=== PATIENT | female | born 1970 | race Hispanic/Latino ===

== ENCOUNTER → 2020-10-18 15:29 | Outpatient (CLI) | payer OTHER, SELFPAY ==
--- NOTE | 2020-10-18 | DI.MRI.S_ITS ---
PROCEDURE: MR THORACIC SPINE WO CON INDICATIONS: PARESTHESIA OF SKIN TECHNIQUE: Noncontrast sagittal T1 spine echo and T2 fast spin echo, sagittal STIR, axial T1 and T2 fast spin echo through the thoracic spine. COMPARISON: [facility], , MR CERVICAL SPINE WO CON, 10/18/2020, 15:49. FINDINGS: Image quality: Excellent. Alignment and Curvature: There is normal bony alignment. Bone Marrow: Marrow is of normal overall signal. Increased T1 and T2 signals present at T3 most suggestive of hemangioma. No acute vertebral body compression fractures. Spinal Cord: Visualized spinal cord is normal in size and signal. Paraspinous Soft Tissues: No paravertebral masses. Miscellaneous: On axial images, central canal and foramina appear widely patent at all scanned levels. Scattered mild multilevel disc desiccation is noted. IMPRESSION: Scattered mild multilevel disc desiccation. Dictated by: Marcella Jc M.D. on 10/18/2020 at 17:02 Approved by: Marcella Jc M.D. on 10/18/2020 at 17:04
--- NOTE | 2020-10-18 15:39 | DI.MRI.S_ITS ---
PROCEDURE: MR CERVICAL SPINE WO CON INDICATIONS: PARESTHESIA OF SKIN TECHNIQUE: Noncontrast sagittal T1 spin echo and T2 fast spin echo, sagittal STIR, foraminal oblique sagittal T2 fast spin echo, and axial gradient echo or T2 fast spin echo through the cervical spine. COMPARISON: None. FINDINGS: Image quality: Degraded by patient motion artifact. Alignment and Curvature: There is normal bony alignment. Bone Marrow: Marrow demonstrates normal overall signal. Spinal Cord: Visualized spinal cord has normal size and signal. No cerebellar tonsillar herniation. Paraspinous Soft Tissues: No paravertebral masses. Prevertebral soft tissues are normal in thickness. C2-C3: Normal appearance. C3-C4: Normal appearance. C4-C5: Slight loss of disc signal. Minimal, diffuse disc bulge. Small central disc protrusion. Mild narrowing of the central canal. No neural foraminal narrowing. No neural compression. C5-C6: Loss of disc signal. Slight loss of disc height. Mild to moderate diffuse disc bulge. Moderate narrowing of the central canal. Moderate right neural foraminal narrowing. No neural compression. C6-C7: Loss of disc signal. Mild, diffuse disc bulge. Mild narrowing of the central canal. No neural foraminal narrowing. No neural compression. C7-T1: Normal appearance. IMPRESSION: 1. Mild multilevel degenerative disease. 2. Moderate C5-C6 central canal narrowing. Mild C4-C5 and C6-C7 central canal narrowing. 3. Moderate right C5-C6 neural foraminal narrowing. 4. No neural compression. 5. No abnormal spinal cord signal within limitations related to motion artifact. Dictated by: Loida Prasad MD, PhD on 10/18/2020 at 17:12 Approved by: Loida Prasad MD, PhD on 10/18/2020 at 17:16
== END ==
PROVIDERS: Referring Provider Family Medicine; Visit Provider Family Medicine
DX: M50.321 Other cervical disc degeneration at C4-C5 level (principal); R20.2 Paresthesia of skin
CPT/HCPCS: 72141; 72146

== ENCOUNTER → 2020-12-06 12:40 | Outpatient (CLI) | payer OTHER, SELFPAY ==
--- NOTE | 2020-12-06 | DI.MRI.S_ITS ---
PROCEDURE: MR HEAD/BRAIN WO/W CON INDICATIONS: Cyst on brainstem on cervical MRI TECHNIQUE: Noncontrast axial T1 spin echo, axial T2 fast spin echo, sagittal and axial FLAIR, coronal T2 fast spin echo, axial gradient echo, axial diffusion and ADC through the brain. After the administration of contrast, axial and coronal 3D VIBE or T1 spin echo with fat saturation through the brain. COMPARISON: [facility], MR, MR CERVICAL SPINE WO CON, 10/18/2020, 15:49. FINDINGS: Image quality: Excellent. CSF Spaces: Basal cisterns are patent. No extra-axial fluid collections. Ventricles are normal in size and shape. Brain: In this patient with this given history, scrutiny is given to the apparent brainstem lesion, as seen on the recent prior cervical spine MRI. At this site, no abnormalities can be seen. No abnormal enhancement is seen. No midline shift. No intracranial bleeds or masses. No abnormal intracranial enhancement. The brainstem appears normal. Diffusion-weighted images demonstrate no acute ischemic insults. No chronic ischemic insults. Normal intravascular flow voids are present. Skull and face: Calvarial marrow is normal in signal. Orbits appear normal. Sinuses: Sinuses and mastoids appear clear. IMPRESSION: Normal brainstem. The prior cervical spine MRI appearance is regarded to be artifactual. Negative examination. No masses or abnormal enhancement can be seen. No findings of acute or subacute infarction can be seen. Dictated by: Bandar Hernandez M.D. on 12/06/2020 at 17:01 Approved by: Bandar Hernandez M.D. on 12/06/2020 at 17:05
== END ==
PROVIDERS: Referring Provider Orthopaedic Surgery; Visit Provider Orthopaedic Surgery
DX: R90.89 Other abnormal findings on diagnostic imaging of central nervous system (principal); R29.898 Other symptoms and signs involving the musculoskeletal system
CPT/HCPCS: 70553

== ENCOUNTER 2021-05-20 22:25 | Emergency (ER) | payer OTHER, SELFPAY ==
[2021-05-20 22:37] VITALS: BP 149/81; PULSE 100; RESP 18; TEMP 36.8; O2SAT 98; BMI 28.0
--- NOTE | 2021-05-20 23:15 | ED_ITS ---
HPI - Headache General Chief Complaint: Headache Stated Complaint: LT EYE VISION LOSS/HEADACHES Time Seen by Provider: 05/20/21 22:34 Source: patient Mode of arrival: Ambulatory Limitations: no limitations History of Present Illness HPI Narrative: 50-year-old female nonsmoker with history of neuropathy presents with a friend and a chief complaint of a generalized headache and some vision change in her left eye over the past few days. Her headache is mild to moderate and certainly not her worst. She states is gradually worsening. She denies any trauma, fever, neck pain or numbness, tingling or weakness of her extremities. She denies any obvious provocation or palliation of her headache. Additionally, she complains of some vision disturbance in her left eye. She states that with both eyes open her vision feels fine but when she looks through her left eye only she sees the occasional purple line running across the middle of it and has blurring in the lower third of her visual field. She states she gets pain in her jaw when chewing for the past few days as well. . Complaint: headache Onset (ago): day(s) Onset description: gradual Location: frontal Severity: moderate Quality: aching and throbbing Relieving factors: nothing Exacerbating factors: none Treatments prior to arrival: none Related Data Home Medications Medication Instructions Recorded Confirmed gabapentin 300 mg PO QPM 05/21/21 05/21/21 insulin glargine [Lantus Solostar unit SUBCUT QPM 05/21/21 U-100 Insulin] insulin lispro [Humalog KwikPen 15 unit SUBCUT ACHS 05/21/21 05/21/21 Insulin] metformin 1,000 mg PO BID 05/21/21 05/21/21 Allergies Allergy/AdvReac Type Severity Reaction Status Date / Time No Known Drug Allergies Allergy Verified 05/20/21 22:37 Review of Systems Constitutional Constitutional: Denies chills, Denies fatigue, Denies fever(s), Denies frequent falls, Reports headache(s), Denies lethargy and Denies weakness Eyes Eyes: Reports change in vision, Denies eye discharge, Denies irritation and Denies loss of vision ENT Ears, Nose, Mouth, and Throat: Denies change in voice, Denies dizziness, Reports headache(s), Denies neck pain, Denies sore throat and Denies throat swelling Cardiovascular Cardiovascular: Denies chest pain, Denies irregular heart rhythm, Denies lightheadedness, Denies palpitations, Denies dyspnea, Denies dyspnea on exertion and Denies orthopnea Respiratory Respiratory: Denies cough, Denies dyspnea, Denies dyspnea on exertion and Denies wheezing Gastrointestinal Gastrointestinal: Denies abdominal pain, Denies change in bowel habits, Denies diarrhea, Denies nausea and Denies vomiting Musculoskeletal Musculoskeletal: Denies neck pain and Denies numbness Integumentary/Breasts Skin/Breast: Denies pruritus, Denies erythema, Denies rash and Denies wounds Neurologic Neurologic: Denies behavioral changes, Denies confusion, Denies dizziness, Denies frequent falls, Reports headache(s), Denies loss of vision, Denies numbness and Denies weakness Psychiatric Psychiatric: Denies anxiety, Denies behavioral changes, Denies confusion, Denies depression, Denies homicidal ideation and Denies suicidal ideation Endocrine Endocrine: Denies fatigue, Denies flushing and Denies palpitations Hematologic/Lymphatic Hematologic/Lymphatic: Denies easy bruising Allergic/Immunologic Allergic/Immunologic: Denies urticaria, Denies throat swelling and Denies wheezing Patient History Social History Smoking Status: Never smoker Smoking Status: Never smoker Substance Use Type: does not use Exam Narrative Exam Narrative: GENERAL: [age] year old patient appears stated age. Well- developed patient, in mild distress. HEAD: Atraumatic. Normocephalic. She has tenderness to palpate along much of her left temporal and forehead region, there is no swelling, induration, redness, warmth EYES: Pupils equal round and reactive. Extraocular motions intact and painless. No scleral icterus. No injection or drainage. Normal obvious findings on fundoscopic. OS pressure 18mmHg. ENT: Nose without bleeding, purulent drainage. Throat without erythema, tonsillar hypertrophy or exudate. Airway patent. NECK: Trachea midline. Non tender CARDIOVASCULAR: Regular rate and rhythm without murmurs, gallops, or rubs. RESPIRATORY: Clear to auscultation. Breath sounds equal bilaterally. No wheezes, rales, or rhonchi. GASTROINTESTINAL: Abdomen soft, non-tender, nondistended. EXTREMITIES: No edema or joint tenderness. BACK: Nontender without deformity or crepitance. No flank tenderness. NEURO: AOx3. SKIN: No rash or erythema of visible areas NIH Stroke Scale 1a. LOC: Patient is alert and keenly responsive (0) 1b. LOC Questions: Patient answers both LOC questions accurately (0) 1c. LOC Commands: Patient performs both tasks correctly (0) 2. Best Gaze: Normal (0) 3. Visual: No visual loss (0) 4. Facial palsy: Normal symmetrical movements (0) 5. Motor arm: No drift (0) 6. Motor leg: No drift (0) 7. Limb ataxia: Absent (0) 8. Sensory: Normal (0) 9. Best language: No aphasia; normal (0) 10. Dysarthria: Normal (0) 11. Extinction and inattention: No abnormality (0) NIHSS: 0 Initial Vital Signs Initial Vital Signs: Vital Signs Temperature 98.2 F 05/20/21 22:37 Pulse Rate 100 H 05/20/21 22:37 Respiratory Rate 18 05/20/21 22:37 Blood Pressure 149/81 H 05/20/21 22:37 Pulse Oximetry 98 05/20/21 22:37 Course Course Course Narrative: patient feeling much better after above stated therapies, still has lower field vision disturbance. Orders Ordered: ED Orders 05/20/21 23:16 CT head/brain wo con Stat 05/21/21 01:13 Basic Metabolic Panel Stat C-Reactive Protein Quant Stat Complete Blood Count AUTO DIFF Stat Erythrocyte Sedimentation Rate Stat 05/21/21 04:54 COVID19 -Nasal swab/Pre-Proc Stat Sodium Chloride (Normal Saline 0.9%) 1,000 mls @ 1,000 mls/hr IV BOLUS ONE Stop: 05/21/21 06:27 Discontinued Medications Dexamethasone (Dexamethasone 10 Mg/Ml Vial) 10 mg IV NOW ONE Stop: 05/21/21 00:09 Last Admin: 05/21/21 00:32 Dose: 10 mg Documented by: KGALLAG Diphenhydramine HCl (Diphenhydramine 50 Mg/Ml Vial) 25 mg IV NOW ONE Stop: 05/21/21 00:09 Last Admin: 05/21/21 00:33 Dose: 25 mg Documented by: KGALLAG Sodium Chloride (Normal Saline 0.9%) 1,000 mls @ 1,000 mls/hr IV BOLUS ONE Stop: 05/21/21 01:07 Last Infusion: 05/21/21 01:40 Dose: 0 mls/hr Documented by: Admin: 05/21/21 00:34 Dose: 1,000 mls/hr Documented by: DAMI Methylprednisolone 1,000 mg/ (Sodium Chloride) 258 mls @ 258 mls/hr IV NOW ONE Stop: 05/21/21 05:25 Ketorolac Tromethamine (Ketorolac 30 Mg/Ml Vial) 15 mg IV NOW ONE Stop: 05/21/21 00:09 Last Admin: 05/21/21 00:33 Dose: 15 mg Documented by: DAMI Metoclopramide HCl (Metoclopramide 10 Mg/2 Ml Inj) 10 mg IV NOW ONE Stop: 05/21/21 00:09 Last Admin: 05/21/21 00:33 Dose: 10 mg Documented by: DAMI Proparacaine HCl (Proparacaine 0.5% Ophth Dayana) 1 drops EYE-LEFT NOW ONE Stop: 05/20/21 23:17 Last Admin: 05/20/21 23:33 Dose: 1 drops Documented by: DAMI Consultations Consultation #1: call to patient's ophtho (Dr. Fernandes). Nobody webmethods consultant call to [facility] and they have Dr. Portillo webmethods consultant, but his malpractice will not allow him to consult for us call to [place]. No Ophtho coverage call to [facility] in [place]. No optho coverage call to /[facility] (Dr. Jara) requests patient be transferred for more detailed ophthalmology exam. Patient agrees with and understands the plan recommendation to give Solu-medrol 1000mg, no pharmacy in house. Nursing trying to make it. Patient then tells us that she is diabetic. We will hold on solu- medrol until arrival in [facility] given transport team cannot take a drip and she already had decadron. Vital Signs Vital signs: Vital Signs - 8 hr 05/20/21 22:37 05/21/21 05:13 Temperature 98.2 F Pulse Rate 100 H 94 H Respiratory Rate 18 16 Blood Pressure 149/81 H 135/76 Pulse Oximetry 98 98 MDM - Headache Lab Data Result diagrams: 05/21/21 01:13 05/21/21 01:13 Labs: Lab Results 05/21/21 05/21/2121 Range/Units 01:13 01:13 04:54 WBC 7.0 (4.5-11.0) X10^3/uL RBC 3.46 L (4.0-5.2) X10^6/uL Hgb 11.0 L (12.0-16.0) g/dL Hct 32.8 L (36-46) % MCV 94.9 (80-100) fL MCH 31.8 (26-34) PG MCHC 33.6 (30-36) % RDW 13.5 (11.6-14.8) % Plt Count 177 (150-400) X10^3/uL Neut % (Auto) 54.9 (50-75) % Lymph % (Auto) 37.2 (25-40) % [place] % (Auto) 5.7 (3-14) % Eos % (Auto) 1.5 L (2-4) % Baso % (Auto) 0.7 (0-2) % Neut # (Auto) 3800 (0020-4017) /uL Lymph # (Auto) 2600 (8592-3480) /uL [place] # (Auto) 400 (0-900) /uL Eos # (Auto) 100 (0-450) /uL Baso # (Auto) 100 (0-100) /uL ESR 29 H (0-20) MM/HR Sodium 140 (137-145) mmol/L Potassium 4.2 (3.4-5.1) mmol/L Chloride 112 H (98-107) mmol/L Carbon Dioxide 23 (22-32) mmol/L BUN 17 (7-17) mg/dL Creatinine 0.50 L (0.52-1.04) mg/dL Estimated GFR > 60.0 (>60) mL/min BUN/Creatinine Ratio 34.0 H (6-22) Glucose 186 H (70-100) mg/dL Calcium 8.5 (8.4-10.2) mg/dL C-Reactive Protein < 0.5 (<1.0) mg/dL SARS-CoV-2 (PCR) Negative (Negative) Point of Care Testing Glucose POC 177 MDM Narrative Medical decision making narrative: Patient with lef Discharge Plan Departure Prescriptions: No Action metformin 1,000 mg tablet 1,000 mg PO BID RF: 0 gabapentin 300 mg capsule 300 mg PO QPM RF: 0 insulin lispro [Humalog KwikPen Insulin] 100 unit/mL insulin pen 15 unit SUBCUT ACHS RF: 0 Lantus Solostar U-100 Insulin 100 unit/mL (3 mL) insulin pen SUBCUT QPM RF: 0
--- NOTE | 2021-05-20 23:16 | DI.CT.S_ITS ---
PROCEDURE: CT HEAD/BRAIN WO CON INDICATIONS: headache, vision change TECHNIQUE: Noncontrast 4.5 mm thick angled axial sections acquired from the foramen magnum to the vertex, with coronal and sagittal reformats. For radiation dose reduction, the following was used: automated exposure control, adjustment of mA and/or kV according to patient size. COMPARISON: None. FINDINGS: Image quality: Excellent. CSF spaces: Basal cisterns are patent. No extra-axial fluid collections. Ventricles are normal in size and shape. Brain: No midline shift. No intracranial masses or hemorrhage. Cooley-white matter interface is normal. Skull and face: Calvarium and visualized facial bones are intact, without suspicious lesions. Sinuses: Bilateral maxillary sinus air-fluid levels and a small left sphenoid sinus air-fluid level. IMPRESSION: 1. Acute sinusitis. 2. Normal appearance of brain parenchyma. No evidence acute stroke, hemorrhage, or mass. Comment: Final report is concordant with preliminary interpretation provided by [facility]. Comment: Findings were discussed with Dr. Bernabe at the time of study dictation on 05/21/21 at 0737 hours, [place] daylight time. Dictated by: Naldo Eugene M.D. on 05/21/2021 at 7:34 Approved by: Naldo Eugene M.D. on 05/21/2021 at 7:38
[2021-05-20] MEDS: PROPARACAINE 0.5% OPHTH SOL 1 DROPS EYE-LEFT (23:33)
[2021-05-21] MEDS: DEXAMETHASONE 10 MG/ML VIAL IV (00:32)
[2021-05-21] MEDS: diphenhydrAMINE 50 MG/ML VIAL 25 MG IV (00:33)
[2021-05-21] MEDS: METOCLOPRAMIDE 10 MG/2 ML INJ IV (00:33)
[2021-05-21] MEDS: KETOROLAC 30 MG/ML VIAL 15 MG IV (00:33)
[2021-05-21] MEDS: SODIUM CHLORIDE 0.9% 1,000 ML 1000 ML IV (00:34)
[2021-05-21 01:48] LABS: Add Manual Diff / Slide Review NO; Basophils Absolute Auto 100 /uL (0-100); Basophils Percent Auto 0.7 % (0-2); Eosinophils Absolute Auto 100 /uL (0-450); Eosinophils Percent Auto 1.5 % (2-4); Hematocrit 32.8 % (36-46); Lymphocytes Absolute Auto 2600 /uL (1100-4500); Lymphocytes Percent Auto 37.2 % (25-40); Mean Corpuscular HGB Conc 33.6 % (30-36); Mean Corpuscular Hemoglobin 31.8 PG (26-34); Mean Corpuscular Volume 94.9 fL (80-100); Monocytes Absolute Auto 400 /uL (0-900); Monocytes Percent Auto 5.7 % (3-14); Neutrophils Absolute Auto 3800 /uL (1500-7000); Neutrophils Percent Auto 54.9 % (50-75); Platelet Count 177 X10^3/uL (150-400); Red Blood Cell Count 3.46 X10^6/uL (4.0-5.2); Red Cell Distribution Width 13.5 % (11.6-14.8)
[2021-05-21 02:00] LABS: Blood Urea Nitrogen 17 mg/dL (7-17); C-Reactive Protein Quant < 0.5 mg/dL (<1.0); Calcium 8.5 mg/dL (8.4-10.2); Carbon Dioxide 23 mmol/L (22-32); Chloride 112 mmol/L (98-107); Estimated Glomerular Filt Rate > 60.0 mL/min (>60); Glucose 186 mg/dL (70-100); HEMOLYSIS < 15 (0-50); Potassium 4.2 mmol/L (3.4-5.1); Sodium 140 mmol/L (137-145)
[2021-05-21 02:06] LABS: Erythrocyte Sedimentation Rate 29 MM/HR (0-20)
[2021-05-21 05:10] LABS: COVID19 -Nasal RAPID Negative (Negative)
[2021-05-21 05:13] VITALS: BP 135/76; PULSE 94; RESP 16; O2SAT 98
== END 2021-05-21 05:52 | disposition short-term general hospital (02) ==
PROVIDERS: Emergency Provider Emergency Medicine; PCP Family Medicine
DX: M31.6 Other giant cell arteritis (principal); R51.9 Headache, unspecified; H54.7 Unspecified visual loss; Z20.822 Contact with and (suspected) exposure to COVID-19
CPT/HCPCS: 36415; 70450; 80048; 82962; 85025; 85651; 86140; 87635; 96361; 96374; 96375; 99285; C9803; J1100; J1200; J1885; J2765